=== PATIENT | male | born 1960 | race Caucasian/White ===

== ENCOUNTER → 2024-11-10 16:51 | Outpatient (REF) | payer OTHER, SELFPAY | LOC: RAD 16:51 | PROVIDERS: ATTENDING PHYSICIAN Internal Medicine Hematology & Oncology; FAMILY PHYSICIAN Family Medicine | DX: C10.8 Malignant neoplasm of overlapping sites of oropharynx (principal); E03.2 Hypothyroidism due to medicaments and other exogenous substances | CPT/HCPCS: 70491; 71260; Q9967 ==